=== PATIENT | female | born 1940 | race Caucasian/White ===

== ENCOUNTER 2018-02-06 15:21 | Emergency (ER) | payer OTHER ==
[~2018-02-06] VITALS: Ht 167.6 cm; Wt 86.2 kg
[~2018-02-06 15:21] MED LIST: AMBIEN10 M1 PO; AMLODIPINE BES2.5 M1 PO; ASPIRIN EC81 M1 PO; FOSAMAX70 M1 PO; LEVOTHYROXINE75 MCG PO; LOSARTAN POTASS50 M1 PO; METFORMIN HCL500 M3 PO; PERCOCET 5-3251 EACH PO; XARELTO20 M2 PO
--- NOTE | 2018-02-06 16:08 | ED GENERAL ADULT ---
History of Present Illness General Chief Complaint: Lower Extremity Problems Stated Complaint: SENT BY URGENT CARE FOR SWELLING TO RT LEG Source: patient Exam Limitations: no limitations Vital Signs & Intake/Output Vital Signs & Intake/Output Vital Signs Date Time Temp Pulse Resp B/P B/P Pulse O2 O2 Flow FiO2 Mean Ox Delivery Rate 02/06 1942 98.7 61 20 188/81 96 Room Air 02/06 1739 98.8 70 16 188/76 95 Room Air 02/06 1722 Room Air 02/06 1532 98.7 78 18 168/68 97 Room Air ED Intake and Output 02/07 0000 02/06 1200 Intake Total Output Total Balance Patient 190 lb Weight Allergies Coded Allergies: NO KNOWN ALLERGIES (06/11/11) NKD PER POST OP ORDER SHEET - S Triage Note: 77F W SWELLING AND ERYTHEMA AND WARMTH TO RLE, BORDERS MARKED BY URGENT CARE. SENT IN FOR U/S TO R/O DVT VS CELLULITIS. STATES SHE SCRATCHED HERSELF A FEW DAYS AGO AND MAYBE ITS INFECTED. ENDORSES FEVERS/CHILLS A FEW DAYS AGO WITH AN EPISODE OF VOMTING BUT NONE AT PRESENT. AFEBRILE. ON XARELTO FOR AFIB. DENIES RECENT LONG PERIODS OF IMMOBILITY/PLANE/CAR RIDES Triage Nurses Notes Reviewed? yes HPI: This is an independent 77-year-old female with history of [id number] diabetes, A. fib, hypertension, peripheral vascular disease status post stenting , presenting the emergency department with 1 day of right lower extremity swelling and erythema. Patient states that she scratched her leg while cleaning up the garage on Thursday. She noticed a small linear laceration with no puncture wound. Today, she noticed some redness to the area with worsening swelling and pain. She presented to urgent care was told to secure the emergency department. She denies any systemic symptoms such as nausea/vomiting, fever, chills, diarrhea. She has no lightheadedness, chest pain, shortness of breath. She denies any recent travel or other trauma. There is been no other recent illness. Patient is tolerating p.o. well. (Cody CHAO,Andrew) Reconcile Medications Amlodipine Besylate 2.5 MG TABLET 1 TAB PO DAILY HTN (Reported) Aspirin (Ecotrin*) 81 MG TABLET.DR 1 TAB PO DAILY PVD (Reported) Betamethasone Dipropionate 0.05 % LOTION 1 HALEY TOP PRN UNDER BREASTS ( Reported) Cephalexin 500 MG CAPSULE 1 CAP PO Q6 CELLULITIS Cholecalciferol (Vitamin D3) (Vitamin D) 2,000 UNIT CAPSULE 1 CAP PO DAILY SUPPLEMENT (Reported) Levothyroxine Sodium 75 MCG TABLET 1 TAB PO DAILY HYPOTHYROID (Reported) Losartan Potassium 50 MG TABLET 1 TAB PO DAILY HTN (Reported) Metformin HCl 500 MG TABLET 1 TAB PO BID DM II (Reported) Multiple Vitamin (Multivitamins) 1 EACH TABLET 1 TAB PO DAILY SUPPLEMENT ( Reported) Ondansetron (Zofran Odt) 4 MG TAB.RAPDIS 1 TAB SL TID nausea Rivaroxaban (Xarelto) 20 MG TABLET 1 TAB PO DAILY A FIB (Reported) with food Zolpidem Tartrate (Ambien) 10 MG TABLET 1 TAB PO QPMP PRN SLEEP (Reported) (Aiyana CHAO,[facility]) Past History Travel History Traveled to [place] past 21 day No Medical History Any Pertinent Medical History? see below for history Neurological: NONE EENT: NONE Cardiovascular: AFIB, hypertension Respiratory: NONE Gastrointestinal: NONE Hepatic: NONE Renal: NONE Musculoskeletal: osteoarthritis Psychiatric: NONE Endocrine: diabetes, hypothyroidism Blood Disorders: NONE Cancer(s): NONE RADIOLOGIC THERAPIST/Reproductive: NONE History of MRSA: No History of VRE: No History of CDIFF: No Surgical History Surgical History: hysterectomy, spinal fusion Psychosocial History What is your primary language Stateless Tobacco Use: Quit >30 days ago Family History Hx Contributory? No (Andrew Ross MD) Review of Systems Review of Systems Constitutional: Reports: no symptoms. EENTM: Reports: no symptoms. Respiratory: Reports: no symptoms. Cardiovascular: Reports: no symptoms. GI: Reports: no symptoms. Skin: Reports: see HPI, rash. All Other Systems: Reviewed and Negative (Andrew Ross MD) Physical Exam Physical Exam General Appearance: well developed/nourished, no apparent distress, alert, awake , comfortable, obese Head: atraumatic, normal appearance Eyes: Bilateral: normal appearance. Ears, Nose, Throat: normal pharynx, normal ENT inspection Neck: normal inspection, supple, full range of motion Respiratory: normal breath sounds, chest non-tender, no respiratory distress, lungs clear Cardiovascular: regular rate/rhythm, normal peripheral pulses Gastrointestinal: normal bowel sounds, soft, non-tender Rectal: deferred Back: normal inspection, normal range of motion Extremities: normal inspection, normal capillary refill Skin: rash Comments: Patient has an erythematous, blanching rash which extends for the majority of her anterior right lower extremity. She has intact distal pulses and sensation. She has mild swelling bilaterally which is slightly worse than the right. She is mildly tender but has soft compartments. There is some small serosanguineous discharge from the small laceration. Core Measures ACS in differential dx? No CVA/TIA Diagnosis: No Sepsis Present: No Sepsis Focused Exam Completed? No (Cody CHAO,Andrew) Progress Differential Diagnoses I considered the following diagnoses in my evaluation of the patient: Cellulitis , low suspicion for deep space infection/necrotizing fasciitis based on exam, history, and presentation. Low suspicion for retained foreign body. Doubt acute fracture. Mild concern for DVT, will address this concern with ultrasound. Patient has no systemic sequela from infection, vital signs are normal, low suspicion for sirs/sepsis. Plan of Care: Orders Procedure Date/time Status LACTIC ACID 02/06 1638 Complete COMPREHENSIVE METABOLIC PANEL 02/06 1638 Complete CBC WITHOUT DIFFERENTIAL 02/06 1638 Complete Laboratory Tests 02/06/18 1938: Lactic Acid Cancelled 02/06/18 1700: Anion Gap 12, Estimated GFR > 60, BUN/Creatinine Ratio 30.0 H, Glucose 124 H, Lactic Acid 1.2, Calcium 9.1, Total Bilirubin 0.8, AST 32, ALT 32, Alkaline Phosphatase 77, Total Protein 6.6, Albumin 4.0, Globulin 2.6, Albumin/Globulin Ratio 1.5, CBC w Diff NO MAN DIFF REQ, RBC 3.76 L, MCV 91.2, MCH 30.6, MCHC 33.6, RDW 14.4, MPV 9.3, Gran % 75.5 H, Lymphocytes % 14.4 L, Monocytes % 8.8, Eosinophils % 1.2, Basophils % 0.1, Absolute Granulocytes 4.6, Absolute Lymphocytes 0.9 L, Absolute Monocytes 0.5, Absolute Eosinophils 0.1, Absolute Basophils 0 We will check labs, lactate, plan to treat with p.o. Keflex. Will plan for ultrasound of right lower extremity. No clot on DVT study. Labs are reassuring with no white count. Metabolic panel shows reassuring picture. No lactate. Patient able to tolerate Keflex well. Will add Keflex p.o. for 10 days in addition to Zofran as needed for nausea. Patient discharged home with return precautions, plan to follow-up with outpatient provider. Initial ED EKG: none (Andrew Ross MD) Departure Departure Time of Disposition: 1926 Disposition: HOME OR SELF CARE Condition: Stable Clinical Impression Primary Impression: Cellulitis of lower limb Referrals: Alex CHAO,Petar Zazueta (PCP/Family) Additional Instructions: Thank you for coming to [facility] today. As we discussed, it is very important that you take your antibiotics as prescribed. I also recommend that you take the Zofran medication as needed for nausea. Please return to the emergency department if you develop fever or worsening pain or swelling or any other concerning symptoms. Please follow-up with your primary doctor Thursday as we discussed. Departure Forms: Customer Survey General Discharge Information Prescriptions: Current Visit Scripts Cephalexin 1 CAP PO Q6 #40 CAP Ondansetron (Zofran Odt) 1 TAB SL TID #10 TAB (Andrew Ross MD) PA/BICYCLE SUBASSEMBLER Co-Sign Statement Statement: ED Attending supervision documentation- [] I saw and evaluated the patient. I have also reviewed all the pertinent lab results and diagnostic results. I agree with the findings and the plan of care as documented in the PA's/BICYCLE SUBASSEMBLER's documentation. [X] I have reviewed the ED Record and agree with the PA's/BICYCLE SUBASSEMBLER's documentation. [] Additions or exceptions (if any) to the PAs/BICYCLE SUBASSEMBLER's note and plan are summarized below: [] (Aiyana CHAO,Mary Ellen) Critical Care Note Critical Care Note Critical Care Time: non-applicable (Andrew Ross MD)
[2018-02-06] MEDS ORDERED: VITAMIN D2000 UNIT PO (16:45)
[2018-02-06] MEDS ORDERED: MULTIVITAMINS1 EAC9 PO (16:45)
[2018-02-06] MEDS ORDERED: BETAMETHASONE D TOP (16:46)
[2018-02-06 17:05] LABS: ABSOLUTE BASOPHIL COUNT 0 /CUMM (0.0-0.2); ABSOLUTE EOSINOPHIL COUNT 0.1 /CUMM (0.0-0.7); ABSOLUTE GRANULOCYTE CT 4.6 /CUMM (1.4-6.5); ABSOLUTE LYMPH COUNT 0.9 /CUMM (1.2-3.4); ABSOLUTE MONOCYTE COUNT 0.5 /CUMM (0.10-0.60); BASOPHIL % 0.1 % (0.0-2.0); EOSINOPHIL % 1.2 % (0-5); GRANULOCYTE % 75.5 % (42.2-75.2); HEMATOCRIT 34.3 % (37-47); MEAN CORPUSCULAR HGB 30.6 PG (27.0-31.0); MEAN CORPUSCULAR HGB CONC 33.6 G/DL (33.0-37.0); MEAN CORPUSCULAR VOLUME 91.2 FL (81.0-99.0); MEAN PLATELET VOLUME 9.3 FL (7.4-10.4); PLATELET COUNT 160 /CUMM (130-400); RBC DISTRIBUTION WIDTH 14.4 % (11.5-14.5); RED BLOOD CELL CT 3.76 /CUMM (4.20-5.40)
--- NOTE | 2018-02-06 17:48 | ULTRASOUND REPORT ---
EXAMINATION: US TRIPLEX LOWER EXTREMITY, RIGHT CLINICAL INFORMATION: Lower extremity swelling and redness. COMPARISON: Lower extremity Doppler 05/10/2014. TECHNIQUE: Color-flow triplex imaging with spectral analysis and compression Doppler were performed on the right lower extremity. FINDINGS: Respiratory variation, normal compression and augmented flow are noted throughout the lower extremity. The visualized common femoral vein, superficial femoral vein, profunda femoral vein, popliteal vein and visualized calf venous segments show no evidence of deep venous thrombosis. There is no Wallace's cyst. IMPRESSION: No evidence of deep venous thrombosis involving the right lower extremity.
[2018-02-06] MEDS ORDERED: CEPHALEXIN500 M3 PO (19:32)
[2018-02-06] MEDS ORDERED: ZOFRAN ODT4 M1 SL (19:32)
[2018-02-06 19:42] VITALS: BP 188/81
== END 2018-02-06 20:10 ==
LOC: ERH 15:21
PROVIDERS: Student in an Organized Health Care Education/Training Program
DX: L03.115 Cellulitis of right lower limb (principal); M79.89 Other specified soft tissue disorders
CPT/HCPCS: J3101